=== PATIENT | male | born 1940 | race Caucasian/White ===

== ENCOUNTER 2018-05-02 05:15 | Inpatient (IN) | payer MEDICARE, BC ==
[~2018-05-02] VITALS: Ht 172.7 cm; Wt 68.0 kg
--- NOTE | 2018-05-02 05:38 | NUR ---
MD ZAPATA AT BEDSIDE FOR MSE
[2018-05-02] MEDS ORDERED: TAMS-3 PO (05:56)
[2018-05-02] MEDS ORDERED: MV-M1CAP18 PO (05:56)
[2018-05-02] MEDS ORDERED: FINA5TAB3 PO (05:56)
[2018-05-02] MEDS ORDERED: METO25TA6 PO (05:56)
[2018-05-02] MEDS ORDERED: NAPR-1009 PO (05:56)
[2018-05-02] MEDS ORDERED: ASPI81TA44 PO (05:56)
[2018-05-02] MEDS ORDERED: GABA-534 PO (05:56)
[2018-05-02] MEDS ORDERED: TADA5TAB2 PO (05:56)
[2018-05-02] MEDS ORDERED: PITA4TAB PO (05:56)
[2018-05-02] MEDS ORDERED: ASPIRIN 81 MG TAB.CHEW PO ONE (06:00)
[2018-05-02] MEDS ORDERED: MORPHINE SULFATE 2 MG/1 ML DISP.SYRIN IV ONE (06:00)
[2018-05-02] MEDS ORDERED: ONDANSETRON 4 MG/2 ML VIAL IV ONE (06:00)
[2018-05-02] MEDS ORDERED: NITROGLYCERIN 0.4 MG/TAB BOTTLE SL ONE ×2 (06:00→06:08)
[2018-05-02] MEDS ORDERED: NITROGLYCERIN OINT 1 GM PACKET TP ONE ×2 (06:00→06:07)
[2018-05-02] MEDS ORDERED: ASPIRIN 81 MG TAB.CHEW ONE (06:07)
[2018-05-02] MEDS ORDERED: MORPHINE SULFATE 4 MG/1 ML DISP.SYRIN ONE (06:08)
[2018-05-02] MEDS ORDERED: ONDANSETRON 4 MG/2 ML VIAL ONE (06:08)
[2018-05-02 06:11] LABS: BASOPHILS % (AUTO) 0.4 % (0.0-2.0); EOSINOPHILS % (AUTO) 0.1 % (0.0-7.0); HEMATOCRIT 41.4 % (36.7-47.1); HEMOGLOBIN 13.9 g/dL (12.5-16.3); LYMPHOCYTES # (AUTO) 0.6 K/uL (20.0-40.0); LYMPHOCYTES % (AUTO) 6.3 % (20.5-51.5); MEAN CORPUSCULAR HEMOGLOBIN 30.9 uug (23.8-33.4); MEAN CORPUSCULAR HGB CONC 34 g/dL (32.5-36.3); MEAN CORPUSCULAR VOLUME 91.7 fL (73.0-96.2); MONOCYTES # (AUTO) 1.1 K/uL (2.0-10.0); MONOCYTES % (AUTO) 10.6 % (0.0-11.0); NEUTROPHILS # (AUTO) 8.2 K/uL (1.8-8.9); NEUTROPHILS % (AUTO) 82.6 % (38.5-71.5); PLATELET COUNT (AUTO) 151 K/uL (152-348); RED BLOOD CELL COUNT(AUTO) 4.52 MIL/uL (4.06-5.63)
[2018-05-02 06:20] LABS: CARBON DIOXIDE 28 mmol/L (21-32); CHLORIDE 103 mmol/L (98-107); CREATININE 1.3 mg/dL (0.6-1.3); GLUCOSE 153 mg/dL (74-106); POTASSIUM 4.4 mmol/L (3.5-5.1); UREA NITROGEN, BLOOD 29 mg/dL (7-18)
[2018-05-02 06:33] LABS: ALANINE AMINOTRANSFERASE 26 U/L (16-63); ALKALINE PHOSPHATASE 60 U/L (50-136); ASPARTATE AMINOTRANSFERASE 21 U/L (15-37); BILIRUBIN,DIRECT 0.1 mg/dL (0.0-0.2); BILIRUBIN,TOTAL 0.5 mg/dL (0.2-1.0); TOTAL PROTEIN, SERUM 8.1 g/dL (6.4-8.2)
--- NOTE | 2018-05-02 07:06 | NUR ---
REPORT GIVEN TO [facility] NURSEC[facility].
--- NOTE | 2018-05-02 07:13 | NUR ---
PT IS IN BED , RESTING COMFORTABLY. NO S/S OF ACUTE DISTRESS AT THIS TIME. PT DENIES C/P, NO N/V, NO SOB.
--- NOTE | 2018-05-02 07:42 | NUR ---
REPORT WAS GIVEN TO FLEET TECHNICIAN . PT WAS TRANSFERED TO ROOM #[id number].
--- NOTE | 2018-05-02 07:50 | NUR ---
MANDOAR report received from Cooper, 78 yr old male came to ED for c/o chest pain , nausea and associated with lying down. troponin negative, BNP 457, Chest x ray showed atelectasis of the left lung base, NSR and o2 at 2lnc. pain free during report time. patient is being transported to room 216 Addendum: 05/02/18 at 0751 by DHIRAJ EARL RN Amended: Links added.
[2018-05-02 08:11] VITALS: BP 99/53
[2018-05-02] MEDS ORDERED: PITAVASTATIN CALCIUM 4 MG PO SCH (09:00)
[2018-05-02] MEDS ORDERED: BETA CAROTENE/VIT C & E/MIN TABLET PO SCH (09:00)
[2018-05-02] MEDS ORDERED: ONDANSETRON 4 MG/2 ML VIAL IV PRN (09:00)
[2018-05-02] MEDS ORDERED: [UNRECOGNIZED DRUG - OTHER] PO SCH (09:00)
[2018-05-02] MEDS ORDERED: METOPROLOL TARTRATE 25 MG TABLET PO SCH (09:00)
[2018-05-02] MEDS ORDERED: MORPHINE SULFATE 2 MG/1 ML DISP.SYRIN IV PRN (09:00)
[2018-05-02] MEDS ORDERED: Z GUARD REMEDY PASTE 57 GM TUBE TOP PRN (09:00)
[2018-05-02] MEDS ORDERED: HYDROCODONE/APAP 5-325MG TABLET PO PRN (09:00)
[2018-05-02] MEDS ORDERED: ASPIRIN EC 81 MG TABLET.DR PO SCH (09:00)
[2018-05-02] MEDS ORDERED: GABAPENTIN 300 MG CAPSULE PO PRN ×2 (09:00→21:00)
[2018-05-02] MEDS ORDERED: MAGNESIUM HYDROXIDE 30 ML LIQUID UDC PO PRN (09:00)
[2018-05-02] MEDS ORDERED: ACETAMINOPHEN 325 MG TABLET PO PRN (09:00)
[2018-05-02 11:42] VITALS: BP 107/60
[2018-05-02] MEDS ORDERED: NORMAL SALINE FLUSH 10 ML DISP.SYRIN IV PRN (14:15)
[2018-05-02 15:58] VITALS: BP 103/59
--- NOTE | 2018-05-02 18:53 | NUR ---
seen by dr Burr. patient is being discharged Addendum: 05/02/18 at 1855 by DHIRAJ EARL RN Amended: Links added.
[2018-05-02] MEDS ORDERED: TAMSULOSIN HCL 0.4 MG CAP.SR.24H PO SCH (21:00)
[2018-05-02] MEDS ORDERED: FINASTERIDE 5 MG TABLET PO SCH (21:00)
[2018-05-02] MEDS ORDERED: NORMAL SALINE FLUSH 10 ML DISP.SYRIN IV SCH (22:00)
== END 2018-05-02 19:15 | disposition home or self-care (01) | DRG 316 ==
LOC: ER 05:18 → TELE 07:27
PROVIDERS: ADMIT Nurse Practitioner Acute Care; ATTEND Internal Medicine
DX: I30.9 Acute pericarditis, unspecified (principal); I25.2 Old myocardial infarction; I25.10 Atherosclerotic heart disease of native coronary artery without angina pectoris; Z95.5 Presence of coronary angioplasty implant and graft; I11.9 Hypertensive heart disease without heart failure; Z85.46 Personal history of malignant neoplasm of prostate; Z92.3 Personal history of irradiation; E78.5 Hyperlipidemia, unspecified; Z79.899 Other long term (current) drug therapy; G62.9 Polyneuropathy, unspecified; F17.290 Nicotine dependence, other tobacco product, uncomplicated; M19.90 Unspecified osteoarthritis, unspecified site; Z98.890 Other specified postprocedural states
CPT/HCPCS: 36415; 70030-TC; 71045; 85025; 93005; 93307; A4663; J2270; J2405; J3490